=== PATIENT | male | born 1990 | race Caucasian/White ===

== ENCOUNTER 2023-10-18 02:59 | Outpatient (CLI) | payer BC | END 2023-10-18 09:00 | disposition critical access hospital (66) | LOC: EMS 02:59 | DX: I48.91 Unspecified atrial fibrillation (principal); R07.9 Chest pain, unspecified; R06.4 Hyperventilation; R45.1 Restlessness and agitation | CPT/HCPCS: A0425; A0427 ==

== ENCOUNTER 2023-10-18 03:33 | Emergency (ER) | payer BC ==
--- NOTE | 2023-10-18 03:42 | ED Physician Documentation ---
PD HPI CHEST PAIN - Stated complaint Stated Complaint: CP - Chief complaint Chief Complaint: Cardiac - History obtained from History obtained from: Patient - Additional information Additional information: HPI from patient. LUCIA. Patient got home from [place] with his s.o. marli. At approximately 11 PM, he took an edible which is routine for him prior to going to sleep and same dose as he usually does. He woke at approximately 02:20 due to sensation of rapid palpitations, tinnitus (specifically "ringing in my ears"). Got up to use bathroom and felt lightheaded with generalized weakness and generalized sensation of unease and thus called 911. He says he has had similar symptoms, episodically over past few weeks, but brief and self-limited. Denies dyspnea, chest pain/pressure. Denies leg swelling. Review of Systems Cardiac: reports: Palpitations. denies: Chest pain / pressure, Pedal edema, Calf pain Respiratory: denies: Dyspnea, Cough GI: reports: Reviewed and negative Neurologic: reports: Generalized weakness. denies: Focal weakness, Numbness, Headache PD PAST MEDICAL HISTORY - Past Medical History Past Medical History: No - Past Surgical History Past Surgical History: Yes General: Gastric surgery - Present Medications Home Medications: Ambulatory Orders Medication Instructions Recorded Confirmed No Known Home Medications 10/18/23 10/18/23 - Allergies Allergies/Adverse Reactions: Allergies Allergy/AdvReac Type Severity Reaction Status Date / Time No Known Drug Allergies Allergy Verified 10/18/23 03:42 - Social History Does the pt smoke?: No Smoking Status: Never smoker PD ED PE NORMAL - Vitals Vital signs reviewed: Yes - General General: Alert and oriented X 3, No acute distress, Well developed/nourished - Neck Neck: Supple, no meningeal sign - Cardiac Cardiac: No murmur - Respiratory Respiratory: No respiratory distress, Clear bilaterally - Abdomen Abdomen: Soft, Non tender - Derm Derm: Normal color, Warm and dry - Extremities Extremities: No edema - Neuro Neuro: Alert and oriented X 3 PD ED PE EXPANDED - Cardiac Cardiac: Tachy, Irregularly irregular Results - Vitals Vitals: Oxygen O2 Source Room air - EKG (time done) No standard instances EKG releavant findings:: EKG personally interpreted by author of this note. Relevant findings are: Rate: Rate (enter#) (150) Rhythm: Atrial fibrillation QRS: Normal Ischemia: Normal ST segments Computer interpretation: Disagree with computer (no ST abnormalities) #2 EKG releavant findings:: EKG personally interpreted by author of this note. Relevant findings are: Rate: Rate (enter#) (83) Rhythm: NSR Jerome: Normal Intervals: Normal OH QRS: Normal Ischemia: Normal ST segments, Q waves (V1, V2), T wave inversion (isolated to III) - Labs Labs: Laboratory Tests 10/18/23 10/18/23 10/18/23 03:44 03:44 04:10 WBC 6.8 RBC 4.86 Hgb 13.5 L Hct 42.6 MCV 87.7 MCH 27.8 MCHC 31.7 L RDW 13.2 Plt Count 253 MPV 11.4 Neut # (Auto) 3.2 Lymph # (Auto) 2.9 Prentiss # (Auto) 0.6 Eos # (Auto) 0.1 Baso # (Auto) 0.1 Absolute Nucleated RBC 0.00 Nucleated RBC % 0.0 Sodium 139 Potassium 3.7 Chloride 105 Carbon Dioxide 23 Anion Gap 11.0 BUN 21 H Creatinine 0.8 Estimated GFR (MDRD) 110 Glucose 130 H Calcium 9.3 Total Bilirubin 0.3 AST 29 ALT 26 Alkaline Phosphatase 69 Troponin I High Sens 4.9 Total Protein 6.8 Albumin 4.3 Globulin 2.5 Albumin/Globulin Ratio 1.7 Lipase 78 TSH 1.68 - Rads (name of study) chest xray Relevant Findings:: Prelim report reviewed, See rad report Procedures - Procedural sedation Sedation prep: Informed consent, Time out completed, Last meal (20:00), PE performed, ASA 1 - healthy, IV O2 monitor, ET CO2 monitor, RT present Sedation Medications: propofol (IV propofol administered by la 20mg IVP x 5 doses for total of 100mg IV propofol) Mallampati classification: I Patient status during sedation: Responds to tactile, Vitals remained stable, Maintained airway, Recovered uneventfully, Hypoxia (briefly 88% pulse ox on room air; 3 l/min NC started (NC was already in place but no oxygen needed until this brief hypoxia) and light sternal rub resulted in rapid correction to mid-90s pulse ox) Sedation recovery: Recovered uneventfully, Back to baseline Time in sedation (Minutes): 15 - Cardioversion - Major Attempt 1 Indication: Tachyarrhythmia Risks, benefits, alternatives explained to: Pt Prep: IV, O2, project executive, Pulse ox, Airway equip Meds: Fentanyl CS via: Pads, AP approach Sync: Biphasic, 100j Post cardioversion rhythm: NSR Performed by: ED MD Medical Decision Making - ED course Complexity details: reviewed results, re-evaluated patient, considered differential, d/w patient ED course: Presents with SARAH, new onset. Unremarkable CBC, ER abdominal panel. Normal TSH, normal cxr. His heart rates on wet silk hanger were as high as 170s but consistently appearing to be SARAH. Rate slowed with 15mg IV cardizem x 2 doses but does not convert to normal rhythm, eventually rising in rate as the doses wore off. We reviewed risks/benefits of electrocardioversion and he consents to this procedure. Conscious sedation with propofol and one-time dose fentanyl for analgesia (see procedure note, above). Successful cardioversion to NSR with one synchronized AP shock. Uneventful recovery to baseline mental status. Results d/w patient, return precautions reviewed. Instructed patient to seek follow up with PCP even if asymptomatic. Departure - Departure Disposition: 01 Home, Self Care Clinical Impression: Atrial fibrillation with rapid ventricular response Condition: Good Instructions: ED Afib, ED Cardioversion Electrical, ED Sedation Procedural Discon Comments: There were no concerning findings on tonight's blood tests, chest x-ray. The wet silk hanger and EKG showed that you were in rapid atrial fibrillation. You were given 2 doses of diltiazem through the IV; this medication lowers the heart rate, often resulting in conversion to a normal cardiac rhythm and rate. Unfortunately, the diltiazem did not work and thus we proceeded with conscious sedation and the electric shock delivered to your chest. Fortunately, the electrical shock did successfully convert you into a normal (sinus) cardiac rhythm. Contact your primary care provider to arrange for the next available appointment for follow-up. Forms: PCP List Discharge Date/Time: 10/18/23 06:37
[2023-10-18] MEDS: diltiaZEM INJ 5 MG/ML VIAL IVP STA ×2 (04:00→04:53)
[2023-10-18 04:07] LABS: BASOPHILS # (AUTO) 0.1 10^3/uL (0.0-0.1); BASOPHILS % (AUTO) 0.9 %; EOSINOPHILS # (AUTO) 0.1 10^3/uL (0.0-0.7); EOSINOPHILS % (AUTO) 1.6 %; HCT - HEMATOCRIT 42.6 % (42.0-52.0); HGB - HEMOGLOBIN 13.5 g/dL (14.0-18.0); LYMPHOCYTES # (AUTO) 2.9 10^3/uL (1.5-3.5); LYMPHOCYTES % (AUTO) 42.4 %; MEAN CORPUSCULAR HEMOGLOBIN 27.8 pg (27.0-31.0); MEAN CORPUSCULAR HGB CONC 31.7 g/dL (32.0-36.0); MEAN CORPUSCULAR VOLUME 87.7 fL (80.0-94.0); MEAN PLATELET VOLUME 11.4 fL (7.4-11.4); MONOCYTES # (AUTO) 0.6 10^3/uL (0.0-1.0); MONOCYTES % (AUTO) 8.3 %; NEUTROPHILS # (AUTO) 3.2 10^3/uL (1.5-6.6); NEUTROPHILS % (AUTO) 46.7 %; PLT - PLATELET COUNT 253 10^3/uL (130-450); RED BLOOD COUNT 4.86 10^6/uL (4.70-6.10); RED CELL DISTRIBUTION WIDTH 13.2 % (12.0-15.0); WHITE BLOOD COUNT 6.8 x10^3/uL (4.8-10.8)
[2023-10-18 04:13] LABS: TROPONIN I HIGH SENSITIVITY 4.9 ng/L (2.3-19.7)
[2023-10-18] MEDS: LORazepam 2 MG/ML VIAL IVP STA (04:25)
[2023-10-18 04:35] LABS: ALBUMIN 4.3 g/dL (3.2-5.5); ALBUMIN/GLOBULIN RATIO 1.7 (1.0-2.2); BILIRUBIN,TOTAL 0.3 mg/dL (0.2-1.0); CALCIUM 9.3 mg/dL (8.5-10.3); CREATININE 0.8 mg/dL (0.6-1.3); POTASSIUM 3.7 mmol/L (3.5-4.5); TOTAL PROTEIN 6.8 g/dL (6.4-8.9)
[2023-10-18] MEDS: SODIUM CHLORIDE 0.9% 1,000 ML IV STA (04:53)
[2023-10-18] MEDS: fentaNYL 100 MCG/2 ML VIAL IVP STA (05:25)
[2023-10-18] MEDS: PROPOFOL 200 MG/20 ML VIAL IVP STA (05:28)
[2023-10-18 05:49] VITALS: O2SAT 97
[2023-10-18 06:36] VITALS: BP 110/68
--- NOTE | 2023-10-18 07:12 | XRAY Report ---
PROCEDURE: Chest 1V INDICATIONS: chest pain TECHNIQUE: One view of the chest was acquired. COMPARISON: None. FINDINGS: Surgical changes and devices: None. Lungs and pleura: An incomplete inspiratory result is noted, with low lung volumes and crowding of t he vascular markings. No focal infiltrates are seen. No large pneumothorax or large pleural effusion can be seen. Mediastinum: Mediastinal contours appear normal. Heart size is normal. Bones and chest wall: No suspicious bony lesions. Overlying soft tissues appear unremarkable. IMPRESSION: No acute cardiopulmonary process. Reviewed by: Braxton Astudillo MD on 10/18/2023 6:10 AM PRINCESS Approved by: Braxton Astudillo MD on 10/18/2023 6:10 AM PRINCESS Station ID: [id number]
== END 2023-10-18 06:37 | disposition home or self-care (01) ==
LOC: ED 03:33
DX: I48.91 Unspecified atrial fibrillation (principal)
CPT/HCPCS: 36415; 71045; 80053; 83690; 84443; 84484; 85025; 92960; 93005; 96374; 96375; 96376; 99152; 99285; J2060

== ENCOUNTER 2023-11-13 07:38 | Outpatient (CLI) | payer BC ==
[2023-11-13 15:12] LABS: BASOPHILS # (AUTO) 0.1 10^3/uL (0.0-0.1); BASOPHILS % (AUTO) 0.9 %; EOSINOPHILS # (AUTO) 0.2 10^3/uL (0.0-0.7); EOSINOPHILS % (AUTO) 2.3 %; HCT - HEMATOCRIT 45.3 % (42.0-52.0); HGB - HEMOGLOBIN 14.4 g/dL (14.0-18.0); LYMPHOCYTES # (AUTO) 2.1 10^3/uL (1.5-3.5); LYMPHOCYTES % (AUTO) 33.3 %; MEAN CORPUSCULAR HEMOGLOBIN 27.9 pg (27.0-31.0); MEAN CORPUSCULAR HGB CONC 31.8 g/dL (32.0-36.0); MEAN CORPUSCULAR VOLUME 87.8 fL (80.0-94.0); MEAN PLATELET VOLUME 10.5 fL (7.4-11.4); MONOCYTES # (AUTO) 0.5 10^3/uL (0.0-1.0); MONOCYTES % (AUTO) 7.5 %; NEUTROPHILS # (AUTO) 3.6 10^3/uL (1.5-6.6); NEUTROPHILS % (AUTO) 55.8 %; PLT - PLATELET COUNT 317 10^3/uL (130-450); RED BLOOD COUNT 5.16 10^6/uL (4.70-6.10); RED CELL DISTRIBUTION WIDTH 13.2 % (12.0-15.0); WHITE BLOOD COUNT 6.4 x10^3/uL (4.8-10.8)
[2023-11-13 15:46] LABS: ALBUMIN 4.5 g/dL (3.2-5.5); ALBUMIN/GLOBULIN RATIO 1.9 (1.0-2.2); ALKALINE PHOSPHATASE 86 IU/L (42-121); ALT ALANINE AMINOTRANSFERASE 29 IU/L (10-60); AST ASPARTATE AMINOTRANSFERASE 28 IU/L (10-42); BILIRUBIN,TOTAL 0.7 mg/dL (0.2-1.0); BUN - BLOOD UREA NITROGEN 18 mg/dL (6-20); CALCIUM 10.2 mg/dL (8.5-10.3); CARBON DIOXIDE - CO2 29 mmol/L (21-32); CHLORIDE 102 mmol/L (101-111); CHOL/HDL RATIO 5.6 (<5.0); CHOLESTEROL 258 mg/dL; CREATININE 0.8 mg/dL (0.6-1.3); GFR - MDRD 110 (>89); GLUCOSE 80 mg/dL (74-104); HDL CHOLESTEROL 46 mg/dL; LDL CHOLESTEROL,CALCULATED 155 mg/dL; LDL/HDL RATIO 3.4 (<3.6); POTASSIUM 4.3 mmol/L (3.5-4.5); SODIUM 138 mmol/L (135-145); TOTAL PROTEIN 6.9 g/dL (6.4-8.9); TRIGLYCERIDES 286 mg/dL (48-352); VLDL CHOLESTEROL 57 mg/dL
== END 2023-11-13 07:39 | disposition home or self-care (01) ==
LOC: LAB.S 07:38
PROVIDERS: ATTEND Physician Assistant Medical
DX: I48.91 Unspecified atrial fibrillation (principal); E78.49 Other hyperlipidemia
CPT/HCPCS: 36415; 80053; 80061; 83721; 85025